=== PATIENT | female | born 1990 | race Caucasian/White ===

== ENCOUNTER 2016-06-18 12:42 | Emergency (ER) | payer BC, OTHER ==
[~2016-06-18] VITALS: Ht 167.6 cm; Wt 118.3 kg
[2016-06-18 12:57] VITALS: TEMP 36.9; Ht 167.6 cm; Wt 118.3 kg
--- NOTE | 2016-06-18 14:25 | DIAGNOSTIC IMAGING REPORT ---
RIGHT FOOT MIN 3 VIEWS ROUTINE CLINICAL HISTORY: right foot injury Right trauma. Pain. COMPARISON: None. DISCUSSION: The bones and joint spaces appear intact. There is no evidence of fracture, dislocation or bony disease. There is no evidence for soft tissue swelling. IMPRESSION: Negative study. Electronically signed by: Noam Strickland M.D. 06/18/2016 2:24 PM Dictated Date/Time: 06/18/2016 2:23 PM
--- NOTE | 2016-06-18 14:39 | EMERGENCY ROOM VISIT NOTE ---
ED Visit Note First contact with patient: 13:33 CHIEF COMPLAINT: Foot pain HISTORY OF PRESENT ILLNESS: This 26-year-old female patient presents to the emergency department ambulatory after injury to the right foot which occurred at work. The patient states that a helium tank fell onto her right foot a few hours ago. She attempted to catch the tank with her left hand. She complains of minimal pain in the left hand and 6/10 pain in the right foot. She is able to walk. She applied ice to the foot which did slightly improve the pain. No numbness or weakness. No ankle pain. There are no lacerations of the foot. The patient is able to move all of their toes and their ankle without pain. No previous fracture to this foot. REVIEW OF SYSTEMS: GENERAL: A 6 system review of systems was completed with positives and pertinent negatives in the HPI. ALLERGIES: Penicillins, morphine, Bactrim MEDICATIONS: No chronic medications PMH: No significant past medical history. SOCIAL HISTORY: The patient lives locally with her family. She is a smoker and drinks alcohol occasionally. PHYSICAL EXAM: Vital Signs: Reviewed Nurse's notes, vital signs stable. GENERAL : This is a 26-year-old female, in no acute distress, but appears in pain, well- developed, well-nourished. MUSCULOSKELETAL: There is no ecchymosis of the left hand. No tenderness of the right hand. Full range of motion of the hand. There is no visual deformity of the right foot. There is no erythema or ecchymosis. There is no warmth. There is tenderness and minimal swelling over the dorsal aspect of the right foot. There is no tenderness over the lateral or medial malleolus. No tenderness of the tib/fib. The range of motion of the ankle is full. Full range of motion of the toes. There is no tenderness over the plantar fascia. The skin is intact and there are no lacerations or puncture wounds. Dorsalis pedis pulse 2+. Capillary refill less than 2 seconds. RADIOGRAPHIC FINDINGS: RIGHT FOOT MIN 3 VIEWS ROUTINE CLINICAL HISTORY: right foot injury Right trauma. Pain. COMPARISON: None. DISCUSSION: The bones and joint spaces appear intact. There is no evidence of fracture, dislocation or bony disease. There is no evidence for soft tissue swelling. IMPRESSION: Negative study. EMERGENCY DEPARTMENT COURSE: I examined the patient. An X-ray of the right foot was reviewed by myself and radiology and reveals no acute findings. Conservative measures were discussed with the patient. She is having no difficulty walking and declined postop shoe. The patient was discharged home in good condition. DIAGNOSIS: Foot pain Problem List Medical Problems: (1) Morbid Obesity Status: Chronic (2) Type II Diabetes Status: Chronic (3) Urin Tract Infection Nos Status: Resolved Current/Historical Medications No Active Prescriptions or Reported Meds Allergies Coded Allergies: Morphine (Unverified Allergy, Mild, 06/18/16) Penicillins (Unverified Allergy, Mild, RASH, 06/18/16) Amoxicillin (Verified Allergy, Unknown, RASH, 06/18/16) Sulfamethoxazole w/Trimethoprim (Verified Allergy, Unknown, RASH, 06/18/16) Vital Signs Date Time Temp Pulse Resp B/P Pulse Ox O2 Delivery O2 Flow Rate FiO2 06/18/16 14:47 76 151/103 94 06/18/16 12:57 36.9 65 20 132/96 98 Room Air Departure Information Impression Primary Impression: Contusion of foot Dispostion Home / Self-Care Condition GOOD Prescriptions No Active Prescriptions or Reported Meds Referrals No Doctor, Assigned (PCP) Patient Instructions My [facility] Additional Instructions For pain control, you can use the following [id number] medicines (if >12 yo): - Regular strength (325mg/tab) Tylenol (acetaminophen) 2 tabs every 4-6 hours as needed. Do not exceed 12 tablets in a 24 hour period. Avoid taking more than 4 grams (4000 mg) of Tylenol per day. This includes any other sources of acetaminophen you may take on a regular basis. - Regular strength (200 mg/tab) Advil (ibuprofen) 1-2 tabs every 4-6 hours as needed. Do not exceed a dose of 3200 mg per day. Apply ice to the foot and elevate frequently for the next 48 hours. Follow-up with Workmen's Compensation providers as needed. Problem Qualifiers Primary Impression: Contusion of foot Encounter type: initial encounter Laterality: right Qualified Codes: S90.31XA - Contusion of right foot, initial encounter
[2016-06-18 14:47] VITALS: BP 151/103; PULSE 76; O2SAT 94
== END 2016-06-18 14:48 | disposition home or self-care (01) ==
LOC: C.EDB 12:44 → C.EDD 14:48
DX: S90.31XA Contusion of right foot, initial encounter (principal); W20.8XXA Other cause of strike by thrown, projected or falling object, initial encounter; E11.9 Type 2 diabetes mellitus without complications; F17.200 Nicotine dependence, unspecified, uncomplicated; Z87.440 Personal history of urinary (tract) infections; Z88.0 Allergy status to penicillin; Z88.1 Allergy status to other antibiotic agents; Z88.2 Allergy status to sulfonamides; Z88.5 Allergy status to narcotic agent

== ENCOUNTER 2017-07-16 14:04 | Emergency (ER) | payer OTHER ==
[~2017-07-16] VITALS: Ht 170.2 cm; Wt 118.6 kg
[2017-07-16 14:09] VITALS: TEMP 37; Ht 170.2 cm; Wt 118.6 kg
[2017-07-16] MEDS ORDERED: SODIUM CHLORIDE 0.9% 1000ML 1,000 ML IV STA (16:22)
[2017-07-16] MEDS ORDERED: ONDANSETRON INJ 2 MG/ML 2 ML VIAL IV STA (16:22)
[2017-07-16] MEDS ORDERED: KETOROLAC TROMETHAMINE 30 MG/ML VIAL IV STA (16:22)
--- NOTE | 2017-07-16 17:22 | DIAGNOSTIC IMAGING REPORT ---
CT OF THE ABDOMEN AND PELVIS WITHOUT CONTRAST CLINICAL HISTORY: Left flank pain. COMPARISON STUDY: CT of the abdomen and pelvis February 17, 2011. TECHNIQUE: Axial images of the abdomen and pelvis were obtained without IV contrast. Images were reviewed in the axial, sagittal, and coronal planes. A dose lowering technique was utilized adhering to the principles of ALARA. FINDINGS: Lung bases are clear. No renal, ureteral or bladder calculi are present. There is no hydronephrosis or hydroureter. Evaluation of the abdomen and pelvis is suboptimal on this unenhanced exam. The liver, spleen, adrenal glands and pancreas are unremarkable. Left adrenal nodularity is unchanged since CT of February 17, 2011. This is benign. There is no evidence for a bowel obstruction. The appendix is normal. There is no ascites or lymphadenopathy. The ovaries are not enlarged. There are no suspicious osseous lesions. IMPRESSION: 1. No urinary calculi or hydronephrosis. 2. No acute process within the abdomen or pelvis on unenhanced study. Electronically signed by: Varinder Otoole M.D. 07/16/2017 5:21 PM Dictated Date/Time: 07/16/2017 5:14 PM
[2017-07-16 17:30] LABS: BASO % 0.4 %; BASO ABS # 0.04 K/uL (0-0.2); EOS % 1.4 %; EOS ABS # 0.16 K/uL (0-0.5); HEMATOCRIT 41.5 % (37-47); IG# 0.03 K/uL (0.00-0.02); LYMPH % 36.1 %; LYMPH ABS # 4.01 K/uL (1.2-3.4); MEAN CELL VOLUME 88.9 fL (80-100); MEAN CORPUSCULAR HGB CONC 33.7 g/dl (32-36); MONO ABS # 0.67 K/uL (0.11-0.59); NEUT % 55.8 %; PLATELET COUNT 344 K/uL (130-400); RED CELL DISTRIBUTION WIDTH CV 13.5 % (11.5-14.5); RED CELL DISTRIBUTION WIDTH SD 44.2 fL (36.4-46.3); WHITE BLOOD COUNT 11.11 K/uL (4.8-10.8)
[2017-07-16 17:54] LABS: ALBUMIN 3.8 gm/dl (3.4-5.0); CREATININE 0.97 mg/dl (0.60-1.20); POTASSIUM 3.9 mmol/L (3.5-5.1)
[2017-07-16 17:56] LABS: TOTAL PROTEIN 7.2 gm/dl (6.4-8.2)
[2017-07-16] MEDS ORDERED: PROM25TA9 PO (18:36)
[2017-07-16 18:56] VITALS: BP 131/76; PULSE 70; O2SAT 98
--- NOTE | 2017-07-16 20:44 | EMERGENCY ROOM VISIT NOTE ---
History First contact with patient: 16:09 Chief Complaint: FLANK PAIN Stated Complaint: SEVERE LEFT SIDE & BACK PAIN History of Present Illness The patient is a 27 year old female who presents to the Emergency Room with complaints of left back, flank and abdomen pain. The patient reports that her pain started 4 days ago with lower back pain. She thought she injured her back somehow, and applied a lidocaine patch that her boyfriend uses for chronic back pain. The patient reports that she did have some mild relief of her discomfort. The patient reports that while she was driving to work today, she experienced a sudden sharp pain in her left flank and abdomen that lasted a few minutes then went away. She reports that the pain is now intermittent in nature. She has had nausea all morning. She denies any hematuria, difficulty with urination for dysuria. She denies any prior history of recurrent UTI, kidney infection or kidney stones. The patient denies . Last menstruation was 2 weeks ago. She does have a history of polycystic ovaries, and reports typical dysmenorrhea. She reports that this pain is different. She denies any other recent infections, fevers or chills. She denies any pain extending into the right abdomen, upper back or chest. Her pain does seem to be worsened with movement, and improved when laying on her back. The patient currently rates her discomfort a 5 out of 10 on my exam, rating her pain a 6 out of 10 in triage. Review of Systems HEENT: Denies dizziness, visual problems, hearing loss, tinnitus. Denies difficulty swallowing or oral lesions. PULMONARY: Denies cough, shortness of breath, sputum production or hemoptysis. CARDIOVASCULAR: Denies chest pain, palpitations, dyspnea on exertion, orthopnea or peripheral edema. GASTROINTESTINAL: Denies diarrhea, constipation, nausea, vomiting, or abdominal pain. GENITOURINARY: Denies dysuria, frequency, urgency or nocturia. NEUROLOGIC: Denies history of epilepsy, CVA, TIA or chronic headaches. MUSCULOSKELETAL: Denies history of joint tenderness/swelling. SKIN: Denies rashes or lesions. PSYCHIATRIC: Denies history of depression or mental illness. ENDOCRINE: Denies history of diabetes, thyroid disorders, abnormal hair growth or sexual dysfunction. Past Medical/Surgical History Medical Problems: (1) Morbid Obesity (2) Type II Diabetes (3) Urin Tract Infection Nos Social History Smoking Status: Current Every Day Smoker Alcohol Use: occasionally Drug Use: none Marital Status: single Occupation Status: employed Current/Historical Medications Scheduled PRN Promethazine Hcl (Phenergan), 25 MG PO Q6H PRN for Nausea Physical Exam Vital Signs Date Time Temp Pulse Resp B/P (MAP) Pulse Ox O2 Delivery O2 Flow Rate FiO2 07/16/17 18:56 70 18 131/76 98 Room Air 07/16/17 16:53 50 134/76 96 Room Air 07/16/17 14:09 37.0 80 18 135/76 96 Room Air Physical Exam CONSTITUTIONAL: Obese female, alert and oriented X 3 with positive affect. Patient does not appear in any acute distress on my exam. HEENT: Normocephalic, atraumatic. Pupils equal, round and reactive. No scleral icterus or conjunctival injection/pallor. NECK: Full active range of motion without discomfort. RESPIRATORY: Clear to auscultation bilaterally with no wheezing, crackles, rhonchi or stridor. CARDIOVASCULAR: Regular rate and rhythm with no murmurs, rubs or gallops. GASTROINTESTINAL: Bowel sounds present in all quadrants. Patient has mild left -sided abdominal tenderness to palpation. Negative CVA tenderness. Negative McBurney's point tenderness. Negative Rovsing sign. MUSCULOSKELETAL: Full range of motion of all joints without discomfort. Patient has no tenderness to palpation through the lower lumbar paraspinous muscles, SI joint or sciatic notch. Negative logroll. Negative straight leg raise. INTEGUMENTARY: No rash or other significant dermatologic conditions noted. NEUROLOGIC: No focal neurologic deficits noted. Medical Decision & Procedures ER Provider Diagnostic Interpretation: Noncontrast CT of the abdomen and pelvis does not show any evidence for ureteral calculi or appendicitis. Radiologist report is as follows: CT OF THE ABDOMEN AND PELVIS WITHOUT CONTRAST CLINICAL HISTORY: Left flank pain. COMPARISON STUDY: CT of the abdomen and pelvis February 17, 2011. TECHNIQUE: Axial images of the abdomen and pelvis were obtained without IV contrast. Images were reviewed in the axial, sagittal, and coronal planes. A dose lowering technique was utilized adhering to the principles of ALARA. FINDINGS: Lung bases are clear. No renal, ureteral or bladder calculi are present. There is no hydronephrosis or hydroureter. Evaluation of the abdomen and pelvis is suboptimal on this unenhanced exam. The liver, spleen, adrenal glands and pancreas are unremarkable. Left adrenal nodularity is unchanged since CT of February 17, 2011. This is benign. There is no evidence for a bowel obstruction. The appendix is normal. There is no ascites or lymphadenopathy. The ovaries are not enlarged. There are no suspicious osseous lesions. IMPRESSION: 1. No urinary calculi or hydronephrosis. 2. No acute process within the abdomen or pelvis on unenhanced study. Laboratory Results 07/16/17 17:17 Red Blood Count 4.67, Mean Corpuscular Volume 88.9, Mean Corpuscular Hemoglobin 30.0, Mean Corpuscular Hemoglobin Concent 33.7, Mean Platelet Volume 10.0, Neutrophils (%) (Auto) 55.8, Lymphocytes (%) (Auto) 36.1, Monocytes (%) (Auto) 6.0, Eosinophils (%) (Auto) 1.4, Basophils (%) (Auto) 0.4, Neutrophils # (Auto) 6.20, Lymphocytes # (Auto) 4.01, Monocytes # (Auto) 0.67, Eosinophils # (Auto) 0.16, Basophils # (Auto) 0.04 07/16/17 17:17 Test 07/16/17 16:33 07/16/17 17:17 Urine Color YELLOW Urine Appearance CLEAR (CLEAR) Urine pH 5.0 (4.5-7.5) Urine Specific [place] 1.022 (1.000-1.030) Urine Protein NEG (NEG) Urine Glucose (UA) NEG (NEG) Urine Ketones NEG (NEG) Urine Occult Blood NEG (NEG) Urine Nitrite NEG (NEG) Urine Bilirubin NEG (NEG) Urine Urobilinogen NEG (NEG) Urine Leukocyte Esterase NEG (NEG) Urine Test NEG (NEG) White Blood Count 11.11 K/uL (4.8-10.8) Red Blood Count 4.67 M/uL (4.2-5.4) Hemoglobin 14.0 g/dL (12.0-16.0) Hematocrit 41.5 % (37-47) Mean Corpuscular Volume 88.9 fL (80-100) Mean Corpuscular Hemoglobin 30.0 pg (25-34) Mean Corpuscular Hemoglobin Concent 33.7 g/dl (32-36) Platelet Count 344 K/uL (130-400) Mean Platelet Volume 10.0 fL (7.4-10.4) Neutrophils (%) (Auto) 55.8 % Lymphocytes (%) (Auto) 36.1 % Monocytes (%) (Auto) 6.0 % Eosinophils (%) (Auto) 1.4 % Basophils (%) (Auto) 0.4 % Neutrophils # (Auto) 6.20 K/uL (1.4-6.5) Lymphocytes # (Auto) 4.01 K/uL (1.2-3.4) Monocytes # (Auto) 0.67 K/uL (0.11-0.59) Eosinophils # (Auto) 0.16 K/uL (0-0.5) Basophils # (Auto) 0.04 K/uL (0-0.2) RDW Standard Deviation 44.2 fL (36.4-46.3) RDW Coefficient of Variation 13.5 % (11.5-14.5) Immature Granulocyte % (Auto) 0.3 % Immature Granulocyte # (Auto) 0.03 K/uL (0.00-0.02) Anion Gap 7.0 mmol/L (3-11) Est Creatinine Clear Calc Drug Dose 118.1 ml/min Estimated GFR () 94.1 Estimated GFR (Non- 81.2 BUN/Creatinine Ratio 18.0 (10-20) Calcium Level 9.0 mg/dl (8.5-10.1) Total Bilirubin 0.2 mg/dl (0.2-1) Aspartate Amino Transf (AST/SGOT) 17 U/L (15-37) Alanine Aminotransferase (ALT/SGPT) 27 U/L (12-78) Alkaline Phosphatase 73 U/L (45-117) Total Protein 7.2 gm/dl (6.4-8.2) Albumin 3.8 gm/dl (3.4-5.0) Globulin 3.4 gm/dl (2.5-4.0) Albumin/Globulin Ratio 1.1 (0.9-2) Lipase 101 U/L (73-393) The above labs were reviewed. Urinalysis was normal, and urine was negative. White count is only mildly elevated. Electrolytes, LFTs and lipase are normal. Medications Administered Medications (Trade) Dose Ordered Sig/[place] Route Start Time Stop Time Status Last Admin Dose Admin Sodium Chloride 1,000 ml @ 999 mls/hr Q1H1M STAT IV 3/13/18 16:22 07/16/17 17:22 DC 07/16/17 17:19 999 MLS/HR Ketorolac Tromethamine (Toradol Inj) 30 mg NOW STAT IV 07/16/17 16:22 07/16/17 16:25 DC 07/16/17 17:22 30 MG Ondansetron HCl (Zofran Inj) 4 mg NOW STAT IV 07/16/17 16:22 07/16/17 16:25 DC 07/16/17 17:22 4 MG Procedure 1. IV hydration: The patient was administered a normal saline 1 L bolus 2. IV medications: Toradol 30 mg and Zofran 4 mg IVP ED Course Patient history and physical exam were performed. Nurse's notes were reviewed. Vital signs were reviewed and were normal. IV access was established, and labs were drawn. The patient was hydrated with normal saline, and was administered IV Toradol and Zofran for pain and nausea. Review of labs shows a mild leukocytosis, otherwise electrolytes are normal. LFTs and lipase are normal. Urinalysis is also normal with a negative urine test. Noncontrast CT of the abdomen and pelvis was negative for ureteral calculi. The appendix was also visualized and normal. Upon reassessment, the patient did report significant relief of her pain and nausea. The case was further discussed with Dr. Bhakta, ED attending physician, who agrees with outpatient follow-up with her PCP and [facility]. The patient was encouraged alternate ibuprofen and Tylenol as needed for pain. She was provided a prescription for Phenergan as needed for nausea. She was instructed to return to emergency department for any progressively worsening pain, persistent vomiting, urinary symptoms, bloody stool or fever. The patient was happy with plan of care, and voiced understanding of all discharge instructions. Medical Decision Patient presents with complaint of lower back pain radiating to the left flank. The patient reports that she did have some relief with the lidocaine patches that she applied to the back. This is consistent with possible musculoskeletal etiology. Her CT scan and urinalysis are not suggestive of ureteral calculus/ colic, UTI or pyelonephritis. The patient has no clinical exam findings to suggest diverticulitis, appendicitis, peritonitis or other acute intra- abdominal etiologies. I feel that the patient is at low risk for ovarian torsion. She has a known history of PCOS. At this point I do not feel that an ultrasound is needed, and can be ordered as felt necessary by her S[facility]IOR [facility] ARCHITECT or PCP. The patient was given specific instructions to return for any worsening symptoms. Medication Reconcilliation Current Medication List: was personally reviewed by me Blood Pressure Screening Patient's blood pressure: Normal blood pressure Impression Primary Impression: Left flank pain Departure Information Prescriptions Promethazine Hcl (Phenergan) 25 Mg Tab 25 MG PO Q6H Y for Nausea, #20 TAB Prov: Wood Rogers PA 07/16/17 Referrals [facility] (PCP) Patient Instructions My [facility]
== END 2017-07-16 19:04 | disposition home or self-care (01) ==
LOC: C.EDB 14:07 → C.EDC 19:04
DX: R10.9 Unspecified abdominal pain (principal); E11.9 Type 2 diabetes mellitus without complications; E66.01 Morbid (severe) obesity due to excess calories; Z87.440 Personal history of urinary (tract) infections; F17.210 Nicotine dependence, cigarettes, uncomplicated